=== PATIENT | female | born 1970 | race Asian ===

== ENCOUNTER 2017-09-16 07:39 | Inpatient (IN) | payer MEDICAID, OTHER ==
[~2017-09-16] VITALS: Ht 167.6 cm; Wt 185.4 kg
[~2017-09-16 07:39] MED LIST: AMLO10TA2 PO; ASPI81TA50 PO; CEFD300C37 PO; CHOL2000 PO; CLON0.1T PO; CLON1PAT9 TD; FURO-92 PO; GLIM4TAB2 PO; HYDR-3342 PO; LISI-167 PO; METF10002 PO; POTA10TA11 PO; PRAV20TA2 PO; RIVA1TAB PO; RIVA20TA PO
[2017-09-16] MEDS ORDERED: EMPA25TA PO (08:13)
[2017-09-16] MEDS ORDERED: ASPIRIN 81 MG TABLET CHEW ONE (08:24)
[2017-09-16] MEDS ORDERED: SODIUM CHLORIDE FLUSH 10ML SYR IVF ONE (08:30)
[2017-09-16] MEDS ORDERED: ASPIRIN 81 MG TABLET CHEW PO ONE (08:30)
[2017-09-16 08:35] LABS: BASOPHILS # (AUTO) 0.03 x10^3/uL (0-0.1); BASOPHILS % (AUTO) 1 % (0-1); EOSINOPHILS # (AUTO) 0.16 x10^3/uL (0-0.4); EOSINOPHILS % (AUTO) 2 % (1-7); LYMPHOCYTES # (AUTO) 2.71 x10^3/uL (1-3.4); LYMPHOCYTES % (AUTO) 38 % (22-44); MD NO; MEAN CORPUSCULAR HGB CONC 32.7 g/dL (32.4-35.8); MEAN CORPUSCULAR VOLUME 91.8 fL (80-100); MEAN PLATELET VOLUME 8.8 fL (7.4-10.4); MONOCYTES # (AUTO) 0.73 x10^3/uL (0.2-0.8); MONOCYTES % (AUTO) 10 % (2-9); NEUTROPHILS # (AUTO) 3.55 x10^3/uL (1.8-6.8); NEUTROPHILS % (AUTO) 49 % (42-75); PLATELET COUNT 236 x10^3/uL (130-400); RED CELL DISTRIBUTION WIDTH 15.1 % (9.6-15.2)
[2017-09-16 08:48] LABS: ALBUMIN 3.3 g/dL (3.4-5.0); ANION GAP 6 mmol/L (5-15); CHLORIDE 103 mmol/L (98-107)
[2017-09-16 08:54] LABS: ALANINE AMINOTRANSFERASE 29 U/L (12-78); ALKALINE PHOSPHATASE 53 U/L (45-117); BILIRUBIN,TOTAL 0.5 mg/dL (0.2-1.0); CREATININE 0.87 mg/dL (0.55-1.02); TOTAL PROTEIN 8.1 g/dL (6.4-8.2); TROPONIN I < 0.015 ng/mL (0.000-0.045)
[2017-09-16 08:58] LABS: INTERNATIONAL NORMALIZED RATIO 0.98 (0.93-1.1); PROTHROMBIN TIME 10.2 Seconds (9.6-11.5)
[2017-09-16] MEDS ORDERED: DEXTROSE 4 GM TAB.CHEW PO PRN (10:30)
[2017-09-16] MEDS ORDERED: NITROGLYCERIN 0.4 MG BOTTLE (25 TABS) SL PRN (10:30)
[2017-09-16] MEDS ORDERED: DEXTROSE 50%, 50ML SYRINGE IVPush PRN (10:30)
[2017-09-16] MEDS ORDERED: morphine SULFATE 10 MG/ML, 1ML IVPush PRN (10:30)
[2017-09-16] MEDS ORDERED: DOCUSATE 100 MG CAPSULE PO PRN (10:30)
[2017-09-16] MEDS ORDERED: ONDANSETRON 2MG/ML, 2ML IVPush PRN (10:30)
[2017-09-16] MEDS ORDERED: GLUCAGON 1 MG IM PRN (10:30)
[2017-09-16] MEDS ORDERED: ONDANSETRON ODT 4 MG PO PRN (10:30)
[2017-09-16] MEDS ORDERED: POLYETHYLENE GLYCOL 17 GM PACKET PO PRN (10:30)
[2017-09-16] MEDS ORDERED: ACETAMINOPHEN 325 MG TABLET PO PRN (10:30)
[2017-09-16] MEDS ORDERED: ENALAPRILAT 1.25 MG/ML, 2ML IVPush PRN (10:30)
[2017-09-16] MEDS ORDERED: BISACODYL 10 MG SUPP PR PRN (10:30)
[2017-09-16 10:45] VITALS: BP 117/68
[2017-09-16] MEDS ORDERED: DULA0.75 SQ-INSULIN (11:41)
[2017-09-16] MEDS ORDERED: ADAL10SY SQ-INSULIN (11:41)
[2017-09-16] MEDS ORDERED: MAGNESIUM SULFATE PMX 2GM/50ML 50 ML IV ONE (12:00)
[2017-09-16] MEDS: INSULIN LISPRO 100 UNITS/ML, PEN SQ-INSULIN SCH ×3 (12:57→21:56)
[2017-09-16 14:06] VITALS: BP 119/73
[2017-09-16 14:17] LABS: TROPONIN I < 0.015 ng/mL (0.000-0.045)
[2017-09-16 16:10] VITALS: BP 120/75
[2017-09-16] MEDS: ENOXAPARIN 40 MG/0.4 ML SQ SCH (16:25)
[2017-09-16 20:54] LABS: TROPONIN I < 0.015 ng/mL (0.000-0.045)
[2017-09-16 20:56] VITALS: BP 142/83
[2017-09-16] MEDS: SODIUM CHLORIDE FLUSH 10ML SYR IVF SCH (21:53)
[2017-09-16] MEDS: LISINOPRIL 10 MG TABLET PO SCH (21:54)
[2017-09-16] MEDS: PRAVASTATIN 20 MG TABLET PO SCH (21:55)
[2017-09-17 03:19] VITALS: BP 123/75
[2017-09-17 04:52] LABS: ANION GAP 4 mmol/L (5-15); CALCIUM 9.1 mg/dL (8.5-10.1); CHLORIDE 101 mmol/L (98-107)
[2017-09-17 04:55] LABS: BASOPHILS # (AUTO) 0.04 x10^3/uL (0-0.1); BASOPHILS % (AUTO) 1 % (0-1); EOSINOPHILS # (AUTO) 0.17 x10^3/uL (0-0.4); EOSINOPHILS % (AUTO) 3 % (1-7); LYMPHOCYTES # (AUTO) 2.31 x10^3/uL (1-3.4); LYMPHOCYTES % (AUTO) 36 % (22-44); MD NO; MEAN CORPUSCULAR HEMOGLOBIN 29.9 pg (27.0-34.8); MEAN CORPUSCULAR HGB CONC 32.2 g/dL (32.4-35.8); MEAN CORPUSCULAR VOLUME 92.8 fL (80-100); MEAN PLATELET VOLUME 8.9 fL (7.4-10.4); MONOCYTES # (AUTO) 0.47 x10^3/uL (0.2-0.8); MONOCYTES % (AUTO) 7 % (2-9); NEUTROPHILS # (AUTO) 3.51 x10^3/uL (1.8-6.8); NEUTROPHILS % (AUTO) 54 % (42-75); PLATELET COUNT 236 x10^3/uL (130-400); RED BLOOD COUNT 4.65 x10^6/uL (3.82-5.3); RED CELL DISTRIBUTION WIDTH 15.4 % (9.6-15.2)
[2017-09-17 05:06] LABS: CREATININE 0.74 mg/dL (0.55-1.02)
[2017-09-17] MEDS: ASPIRIN 325 MG TABLET PO SCH (06:16)
[2017-09-17] MEDS: INSULIN LISPRO 100 UNITS/ML, PEN SQ-INSULIN SCH ×4 (07:00→21:35)
[2017-09-17] MEDS ORDERED: REGADENOSON 0.4 MG/5 ML SYRINGE ONE (07:45)
[2017-09-17 07:50] VITALS: BP 122/84
[2017-09-17] MEDS: SODIUM CHLORIDE FLUSH 10ML SYR IVF SCH ×2 (07:55→21:34)
[2017-09-17] MEDS: LISINOPRIL 10 MG TABLET PO SCH ×2 (07:56→21:35)
[2017-09-17] MEDS: AMLODIPINE 5 MG TABLET PO SCH (07:57)
[2017-09-17] MEDS: POTASSIUM CHLORIDE 10 MEQ TABLET.ER PO SCH (09:00)
[2017-09-17] MEDS: FUROSEMIDE 40 MG TABLET PO SCH (09:00)
[2017-09-17] MEDS ORDERED: LISINOPRIL 10 MG TABLET PO SCH (09:00)
[2017-09-17 15:18] VITALS: BP 112/55
[2017-09-17] MEDS: ENOXAPARIN 40 MG/0.4 ML SQ SCH (15:20)
[2017-09-17 21:30] VITALS: BP 130/78
[2017-09-17] MEDS: PRAVASTATIN 20 MG TABLET PO SCH (21:38)
[2017-09-18 01:31] VITALS: BP 135/85
[2017-09-18] MEDS: ASPIRIN 325 MG TABLET PO SCH (05:53)
[2017-09-18] MEDS: INSULIN LISPRO 100 UNITS/ML, PEN SQ-INSULIN SCH ×2 (07:00→12:49)
[2017-09-18 07:20] VITALS: BP 129/82
[2017-09-18] MEDS: POTASSIUM CHLORIDE 10 MEQ TABLET.ER PO SCH (08:37)
[2017-09-18] MEDS: AMLODIPINE 5 MG TABLET PO SCH (08:37)
[2017-09-18] MEDS: FUROSEMIDE 40 MG TABLET PO SCH (08:37)
[2017-09-18] MEDS: LISINOPRIL 10 MG TABLET PO SCH (08:37)
[2017-09-18] MEDS: SODIUM CHLORIDE FLUSH 10ML SYR IVF SCH (08:37)
[2017-09-18 13:32] VITALS: BP 98/64
== END 2017-09-18 17:00 | disposition home or self-care (01) | DRG 313 ==
LOC: ED 09:42 → EDIP 09:48 → 5SO 10:34 → DCLOUNGE 09-18 16:46
PROVIDERS: ADMIT Hospitalist; ATTEND Hospitalist
DX: R07.89 Other chest pain (principal); Z68.44 Body mass index [BMI] 60.0-69.9, adult; I20.0 Unstable angina; E11.65 Type 2 diabetes mellitus with hyperglycemia; E66.01 Morbid (severe) obesity due to excess calories; E78.5 Hyperlipidemia, unspecified; E88.81 Metabolic syndrome and other insulin resistance; G47.33 Obstructive sleep apnea (adult) (pediatric); I11.9 Hypertensive heart disease without heart failure; L40.9 Psoriasis, unspecified; Z79.82 Long term (current) use of aspirin; Z80.8 Family history of malignant neoplasm of other organs or systems; Z83.3 Family history of diabetes mellitus; Z86.711 Personal history of pulmonary embolism; Z86.718 Personal history of other venous thrombosis and embolism; Z87.891 Personal history of nicotine dependence; Z90.710 Acquired absence of both cervix and uterus; Z99.81 Dependence on supplemental oxygen
CPT/HCPCS: 36415; 71045; 78452; 80048; 80053; 82962; 83735; 83880; 84443; 84484; 85025; 85379; 85610; 93005; 93017; 93970; 99285; C8929; J1650; J2785; A9502; C9898; J1815; J3475

== ENCOUNTER 2018-03-12 11:17 | Emergency (ER) | payer OTHER ==
[~2018-03-12] VITALS: Ht 167.6 cm; Wt 185.0 kg
[~2018-03-12 11:17] MED LIST changes: +ADAL10SY SQ-INSULIN; -AMLO10TA2 PO; +AMLO10TA6 PO; -CLON0.1T PO; +CLON0.1T22 PO; +DULA0.75 SQ-INSULIN; +EMPA25TA PO
[2018-03-12 11:36] VITALS: BP 166/100
--- NOTE | 2018-03-12 11:46 | NUR ---
PT STATES SHE USES HOME O2 OCCASIONALLY AND CPAP AT NIGHT. PT PLACED ON 2LPM O2 AND SENT TO [facility]. SPO2 AT 94% ON O2.
== END 2018-03-12 13:59 | disposition home or self-care (01) ==
LOC: ED 12:52
DX: M25.561 Pain in right knee (principal); G89.29 Other chronic pain; E11.9 Type 2 diabetes mellitus without complications; I10 Essential (primary) hypertension; E78.5 Hyperlipidemia, unspecified; Z86.711 Personal history of pulmonary embolism; Z86.718 Personal history of other venous thrombosis and embolism
CPT/HCPCS: 99283

== ENCOUNTER 2019-05-26 17:29 | Emergency (ER) | payer OTHER ==
[~2019-05-26] VITALS: Ht 167.6 cm; Wt 168.0 kg
[~2019-05-26 17:29] MED LIST changes: -AMLO10TA6 PO; +AMLO10TA8 PO; -GLIM4TAB2 PO; +GLIM4TAB8 PO
[2019-05-26] MEDS ORDERED: AMLODIPINE (17:48)
--- NOTE | 2019-05-26 17:50 | NUR ---
PT CAME IN CO OF "CHEST TIGHTNESS, AND A COUGH. I FEEL REALLY DRY. DIZZY." PT DENIES FEVERS, CHILLS, BODY ACHES. EKG COMPELTED. PT HOOKED UP TO VISUAL MERCHANDISING ASSOCIATE. HX: CHF, DMII, HDL, HTN, PSORIASIS WAS JUST RECENTLY TOLD SHE HAS HEP B BY HER DERMATOLIGST
[2019-05-26] MEDS ORDERED: MAALOX/HYOSCYAMINE/LIDOCAINE 45 ML BTL ONE (18:23)
[2019-05-26] MEDS ORDERED: MAALOX/HYOSCYAMINE/LIDOCAINE 45 ML BTL PO ONE (18:30)
[2019-05-26 18:47] LABS: BASOPHILS % (AUTO) 0 % (0-1); EOSINOPHILS # (AUTO) 0.12 x10^3/uL (0-0.4); EOSINOPHILS % (AUTO) 1 % (1-7); LYMPHOCYTES # (AUTO) 1.66 x10^3/uL (1-3.4); LYMPHOCYTES % (AUTO) 20 % (22-44); MD NO; MEAN CORPUSCULAR HEMOGLOBIN 30.4 pg (27.0-34.8); MEAN CORPUSCULAR HGB CONC 32.6 g/dL (32.4-35.8); MEAN CORPUSCULAR VOLUME 93.3 fL (80-100); MEAN PLATELET VOLUME 8.9 fL (7.4-10.4); MONOCYTES # (AUTO) 0.26 x10^3/uL (0.2-0.8); MONOCYTES % (AUTO) 3 % (2-9); NEUTROPHILS # (AUTO) 6.16 x10^3/uL (1.8-6.8); NEUTROPHILS % (AUTO) 75 % (42-75); PLATELET COUNT 246 x10^3/uL (130-400); RED BLOOD COUNT 4.37 x10^6/uL (3.82-5.3); RED CELL DISTRIBUTION WIDTH 13.8 % (9.6-15.2)
[2019-05-26 18:56] LABS: ALANINE AMINOTRANSFERASE 23 U/L (12-78); ALBUMIN 3.1 g/dL (3.4-5.0); ANION GAP 9 mmol/L (5-15); CALCIUM 9.1 mg/dL (8.5-10.1); CHLORIDE 99 mmol/L (98-107)
[2019-05-26 19:00] LABS: ALKALINE PHOSPHATASE 72 U/L (45-117); BILIRUBIN,TOTAL 0.6 mg/dL (0.2-1.0); CREATININE 0.79 mg/dL (0.55-1.02); TOTAL PROTEIN 8.1 g/dL (6.4-8.2); TROPONIN I < 0.015 ng/mL (0.000-0.045)
[2019-05-26 19:18] VITALS: BP 130/77
--- NOTE | 2019-05-26 19:19 | NUR ---
PT RESTING IN [facility]. REPORTS I[facility]P Addendum: 05/26/19 at 1919 by JONNATHAN REPORTS IMPROVEMENT FROM PAIN IN HER CHEST
[2019-05-26] MEDS ORDERED: FUROSEMIDE 40 MG/4 ML IV ONE (20:00)
[2019-05-26] MEDS ORDERED: FUROSEMIDE 40 MG/4 ML ONE (20:07)
--- NOTE | 2019-05-26 20:21 | NUR ---
PT RESTING IN [facility]. MEDICATED PER MAY. PLACED ON 2 LITERS VIA O2. PT SAYS SHE SLEEPS WITH 2 LITERS
== END 2019-05-28 23:21 | disposition home or self-care (01) ==
LOC: ED 19:33 → UNDOADMIN 20:20 → EDIP 20:20 → ED 05-28 23:21
DX: R06.00 Dyspnea, unspecified (principal); I11.0 Hypertensive heart disease with heart failure; I50.9 Heart failure, unspecified; E78.5 Hyperlipidemia, unspecified; Z90.710 Acquired absence of both cervix and uterus
CPT/HCPCS: 36415; 71045; 80053; 83880; 84484; 85025; 93005; 96374; 99285; J1940

== ENCOUNTER 2019-09-03 14:03 | Emergency (ER) | payer OTHER ==
[~2019-09-03] VITALS: Ht 167.6 cm; Wt 153.1 kg
[~2019-09-03 14:03] MED LIST changes: +AMLODIPINE
--- NOTE | 2019-09-03 15:39 | NUR ---
COMPUTER SCIENCES PROFESSOR: PT WALKED BACK FROM LOBBY TO ROOM AT THIS TIME.
[2019-09-03] MEDS ORDERED: OXYcodone/APAP 10/325MG TABLET ONE (16:11)
[2019-09-03 16:14] VITALS: BP 124/76
[2019-09-03] MEDS ORDERED: OXYcodone/APAP 10/325MG TABLET PO ONE (16:30)
--- NOTE | 2019-09-03 18:01 | NUR ---
Patient/Caregiver given discharge instructions and they have confirmed that they understand the instructions. Patient IN WHEELCHAIR AT REQUEST
== END 2019-09-03 18:02 | disposition home or self-care (01) ==
LOC: ED 17:30
DX: M19.071 Primary osteoarthritis, right ankle and foot (principal); M25.571 Pain in right ankle and joints of right foot
CPT/HCPCS: 99284

== ENCOUNTER 2019-09-14 16:03 | Inpatient (IN) | payer OTHER ==
[~2019-09-14] VITALS: Ht 167.6 cm; Wt 148.8 kg
[2019-09-14 16:59] LABS: BASOPHILS # (AUTO) 0.02 x10^3/uL (0-0.1); BASOPHILS % (AUTO) 0 % (0-1); EOSINOPHILS % (AUTO) 0 % (1-7); LYMPHOCYTES # (AUTO) 1.42 x10^3/uL (1-3.4); LYMPHOCYTES % (AUTO) 21 % (22-44); MD NO; MEAN CORPUSCULAR HEMOGLOBIN 30.3 pg (27.0-34.8); MEAN CORPUSCULAR HGB CONC 32.3 g/dL (32.4-35.8); MEAN CORPUSCULAR VOLUME 93.8 fL (80-100); MEAN PLATELET VOLUME 9.3 fL (7.4-10.4); MONOCYTES # (AUTO) 0.54 x10^3/uL (0.2-0.8); MONOCYTES % (AUTO) 8 % (2-9); NEUTROPHILS # (AUTO) 4.77 x10^3/uL (1.8-6.8); NEUTROPHILS % (AUTO) 71 % (42-75); PLATELET COUNT 211 x10^3/uL (130-400); RED BLOOD COUNT 4.49 x10^6/uL (3.82-5.3)
[2019-09-14] MEDS ORDERED: ACETAMINOPHEN 500 MG TABLET PO ONE (17:00)
[2019-09-14] MEDS ORDERED: SODIUM CHLORIDE 0.9% 1,000ML IVBOLUS ONE (17:00)
[2019-09-14 17:06] LABS: ALANINE AMINOTRANSFERASE 40 U/L (12-78); ANION GAP 9 mmol/L (5-15); CALCIUM 8.6 mg/dL (8.5-10.1); CHLORIDE 101 mmol/L (98-107); CREATININE 1.04 mg/dL (0.55-1.02)
[2019-09-14 17:08] LABS: ALKALINE PHOSPHATASE 69 U/L (45-117); BILIRUBIN,TOTAL 0.5 mg/dL (0.2-1.0); TOTAL PROTEIN 8.2 g/dL (6.4-8.2)
[2019-09-14] MEDS ORDERED: OMEP40CA42 PO (17:08)
[2019-09-14] MEDS ORDERED: ATOR20TA37 PO (17:08)
[2019-09-14] MEDS ORDERED: APIX5TAB PO (17:08)
[2019-09-14] MEDS ORDERED: AMLO10TA8 PO (17:08)
[2019-09-14] MEDS ORDERED: ALLO100T30 PO (17:08)
[2019-09-14] MEDS ORDERED: ACETAMINOPHEN 500 MG TABLET ONE (17:11)
[2019-09-14 17:17] LABS: C-REACTIVE PROTEIN, QUANT 8.6 mg/dL (0.02-0.49)
--- NOTE | 2019-09-14 17:21 | NUR ---
PATIENT CAME TO THE ER WITH HER SISTER FOR FEVERS, CHILLS, HEADACHES, COUGH X3 DAYS. PATIENT'S DAUGHTER AND SON HAVE BEEN DX WITH COVID AND HAVE BEEN IN CLOSE CONTACT. PT IS NOW HAVEING SOB(ON 2L NC) NOW REQUIRING 4L NC. PATIENT IN BED WITH GOWN WITH CONT SEGMENT ASSEMBLER, SPO2, BP 30 MIN, SIDE RAILS UP X2, CALL LIGHT IN REACH.WENT OVER PLAN OF CARE FROM ORDER LIST, AGREES TO PLAN.
[2019-09-14] MEDS ORDERED: SODIUM CHLORIDE FLUSH 10ML SYR IVF PRN (17:30)
[2019-09-14] MEDS ORDERED: AZITHROMYCIN 500 MG in SODIUM CHLORIDE 0.9% 250 ML IVPB ONE (17:30)
[2019-09-14] MEDS ORDERED: CEFTRIAXONE PMX 1GM/50ML 50 ML IVPB ONE (17:30)
[2019-09-14] MEDS ORDERED: CEFTRIAXONE PMX 1GM/50ML 50 ML ONE (17:36)
[2019-09-14 17:59] LABS: D-DIMER (DIC) 0.3 ug/mlFEU (0.00-0.52); PROTIME 10.6 Seconds (9.6-11.5)
[2019-09-14] MEDS ORDERED: ONDANSETRON 2MG/ML, 2ML ONE (18:08)
[2019-09-14] MEDS ORDERED: BISACODYL 10 MG SUPP PR PRN (18:30)
[2019-09-14] MEDS ORDERED: CEFTRIAXONE PMX 1GM/50ML 50 ML IV SCH (18:30)
[2019-09-14] MEDS ORDERED: ONDANSETRON 2MG/ML, 2ML IVPush ONE (18:30)
[2019-09-14] MEDS ORDERED: POLYETHYLENE GLYCOL 17 GM PACKET PO PRN (18:30)
--- NOTE | 2019-09-14 18:43 | NUR ---
ED DIET TRAY ORDERED
[2019-09-14] MEDS: AZITHROMYCIN 500 MG in SODIUM CHLORIDE 0.9% 250 ML IV SCH (18:58)
[2019-09-14] MEDS: SODIUM CHLORIDE 0.9% 1,000 ML IV SCH (19:08)
--- NOTE | 2019-09-14 20:19 | NUR ---
LATE ENTRY FOR 1910: RECEIVED BEDSIDE REPORT FROM LINDA TINAJERO. PT ABLE TO GET SELF OUT OF BED AND SIT IN CHAIR WHILE ER [facility] WAS REPLACED WITH A HOSPITAL BED. PT THEN ABLE TO GET SELF BACK IN BED. PT SITTING IN BED CONNECTED TO CARDIAC, BP AND O2 MONITORS. BEDRAILS UP X3, CALL LIGHT WITHIN REACH.
[2019-09-14] MEDS ORDERED: APIXABAN 5 MG TABLET ONE (20:26)
[2019-09-14] MEDS ORDERED: metFORMIN 500 MG TABLET ONE (20:26)
[2019-09-14] MEDS: ASCORBIC ACID 500 MG TABLET PO SCH (20:30)
[2019-09-14] MEDS: ZINC SULFATE 220 MG CAPSULE PO SCH (20:31)
[2019-09-14] MEDS: ATORVASTATIN 20 MG TABLET PO SCH (20:31)
[2019-09-14] MEDS: APIXABAN 5 MG TABLET PO SCH (20:31)
--- NOTE | 2019-09-14 20:33 | NUR ---
PT PROVIDED WITH DINNER, CONFIRMED WIT MD AMEZCUA NO INSULIN SLIDING SCALE NEEDS TO BE ORDERED FOR MEALS. PT EASILY AROUSED WITH VERBAL STIMULI FROM SLEEP, EATING WITHOUT DIFFICULTY.
[2019-09-14] MEDS: LISINOPRIL 20 MG TABLET PO SCH (21:00)
[2019-09-14] MEDS: metFORMIN 500 MG TABLET PO SCH (21:00)
[2019-09-14] MEDS ORDERED: TEMPLATE NON-FORMULARY MED. (Metformin Hcl** 1,000 MG) PO SCH (21:00)
--- NOTE | 2019-09-14 21:54 | NUR ---
PT UP TO BEDSIDE COMMODE WITH STAND BY ASSIST, STEADY ON FEET.
--- NOTE | 2019-09-14 22:17 | NUR ---
REPORT GIVEN TO BINH JULIEN RN.
[2019-09-14] MEDS ORDERED: LISINOPRIL 10 MG TABLET ONE (23:15)
[2019-09-14 23:23] VITALS: BP 119/74
[2019-09-15] MEDS: SODIUM CHLORIDE 0.9% 1,000 ML IV SCH (02:52)
[2019-09-15 06:35] LABS: BASOPHILS # (AUTO) 0.02 x10^3/uL (0-0.1); BASOPHILS % (AUTO) 1 % (0-1); EOSINOPHILS # (AUTO) 0.01 x10^3/uL (0-0.4); EOSINOPHILS % (AUTO) 0 % (1-7); LYMPHOCYTES # (AUTO) 1.06 x10^3/uL (1-3.4); LYMPHOCYTES % (AUTO) 22 % (22-44); MD NO; MEAN CORPUSCULAR HEMOGLOBIN 30.1 pg (27.0-34.8); MEAN CORPUSCULAR HGB CONC 31.8 g/dL (32.4-35.8); MEAN CORPUSCULAR VOLUME 94.6 fL (80-100); MEAN PLATELET VOLUME 8.6 fL (7.4-10.4); MONOCYTES # (AUTO) 0.43 x10^3/uL (0.2-0.8); MONOCYTES % (AUTO) 9 % (2-9); NEUTROPHILS # (AUTO) 3.21 x10^3/uL (1.8-6.8); NEUTROPHILS % (AUTO) 68 % (42-75); PLATELET COUNT 176 x10^3/uL (130-400); RED BLOOD COUNT 3.97 x10^6/uL (3.82-5.3); RED CELL DISTRIBUTION WIDTH 15.5 % (9.6-15.2)
[2019-09-15 06:41] VITALS: BP_SYST 108; BP_SYST 97; BP_DIAS 67; BP_DIAS 75
[2019-09-15 06:44] LABS: ANION GAP 5 mmol/L (5-15); CALCIUM 8.2 mg/dL (8.5-10.1); CHLORIDE 107 mmol/L (98-107); CREATININE 1.11 mg/dL (0.55-1.02)
[2019-09-15] MEDS: SENNA/DOCUSATE TABLET PO SCH (09:00)
[2019-09-15] MEDS ORDERED: LISINOPRIL 10 MG TABLET ONE (09:38)
[2019-09-15] MEDS: metFORMIN 500 MG TABLET PO SCH ×2 (10:20→16:05)
[2019-09-15] MEDS: LISINOPRIL 20 MG TABLET PO SCH ×2 (10:20→21:29)
[2019-09-15] MEDS: ASCORBIC ACID 500 MG TABLET PO SCH (10:20)
[2019-09-15] MEDS: ZINC SULFATE 220 MG CAPSULE PO SCH (10:20)
[2019-09-15] MEDS: ALLOPURINOL 100 MG TABLET PO SCH (10:21)
[2019-09-15] MEDS: APIXABAN 5 MG TABLET PO SCH ×2 (10:21→21:29)
[2019-09-15] MEDS: OMEPRAZOLE 20 MG CAPSULE.DR PO SCH (10:22)
[2019-09-15] MEDS: AMLODIPINE 10 MG TAB PO SCH (10:22)
[2019-09-15 12:19] VITALS: BP 103/67
[2019-09-15] MEDS: ATORVASTATIN 20 MG TABLET PO SCH ×2 (13:13→21:29)
[2019-09-15] MEDS: ACETAMINOPHEN 325 MG TABLET PO PRN ×2 (13:21→18:14)
[2019-09-15] MEDS: GUAIFENESIN/DM 200-20MG, 10ML UDC PO PRN ×2 (13:22→21:41)
[2019-09-15] MEDS ORDERED: VANCOMYCIN PER PHARMACY MC PRN (14:00)
[2019-09-15] MEDS ORDERED: PHARMACOKINETIC CONSULTATION MC ONE (14:30)
[2019-09-15] MEDS ORDERED: PHARMACOKINETIC MONITORING MC PRN (14:30)
[2019-09-15] MEDS: VANCOMYCIN 2,800 MG in SODIUM CHLORIDE 0.9% 500 ML IV SCH (14:43)
[2019-09-15 20:49] VITALS: BP 118/85
[2019-09-15] MEDS: AZITHROMYCIN 500 MG in SODIUM CHLORIDE 0.9% 250 ML IV SCH (21:29)
[2019-09-15] MEDS ORDERED: AZITHROMYCIN 500 MG TABLET PO ONE (22:00)
[2019-09-15] MEDS: ONDANSETRON ODT 4 MG PO PRN (23:55)
[2019-09-16] VITALS: BP 109/69
[2019-09-16 05:28] LABS: CREATININE 1.01 mg/dL (0.55-1.02)
[2019-09-16] MEDS: GUAIFENESIN/DM 200-20MG, 10ML UDC PO PRN ×3 (05:46→21:35)
[2019-09-16] MEDS: SENNA/DOCUSATE TABLET PO SCH (09:00)
[2019-09-16] MEDS: ATORVASTATIN 20 MG TABLET PO SCH ×2 (09:00→21:37)
[2019-09-16] MEDS: ALLOPURINOL 100 MG TABLET PO SCH (09:01)
[2019-09-16] MEDS: OMEPRAZOLE 20 MG CAPSULE.DR PO SCH (09:01)
[2019-09-16] MEDS: LISINOPRIL 20 MG TABLET PO SCH ×2 (09:01→21:35)
[2019-09-16] MEDS: ASCORBIC ACID 500 MG TABLET PO SCH ×3 (09:01→21:35)
[2019-09-16] MEDS: ZINC SULFATE 220 MG CAPSULE PO SCH (09:01)
[2019-09-16] MEDS: AMLODIPINE 10 MG TAB PO SCH (09:02)
[2019-09-16] MEDS: APIXABAN 5 MG TABLET PO SCH ×2 (09:02→21:35)
[2019-09-16] MEDS: metFORMIN 500 MG TABLET PO SCH ×2 (09:02→18:13)
[2019-09-16] MEDS: ACETAMINOPHEN 325 MG TABLET PO PRN ×2 (09:02→15:46)
[2019-09-16 09:08] VITALS: BP 111/74
[2019-09-16 09:12] LABS: BASOPHILS # (AUTO) 0.02 x10^3/uL (0-0.1); BASOPHILS % (AUTO) 0 % (0-1); EOSINOPHILS % (AUTO) 0 % (1-7); LYMPHOCYTES # (AUTO) 1.12 x10^3/uL (1-3.4); LYMPHOCYTES % (AUTO) 18 % (22-44); MD NO; MEAN CORPUSCULAR HEMOGLOBIN 30.1 pg (27.0-34.8); MEAN CORPUSCULAR HGB CONC 32.1 g/dL (32.4-35.8); MEAN CORPUSCULAR VOLUME 93.7 fL (80-100); MEAN PLATELET VOLUME 8.4 fL (7.4-10.4); MONOCYTES # (AUTO) 0.43 x10^3/uL (0.2-0.8); MONOCYTES % (AUTO) 7 % (2-9); NEUTROPHILS # (AUTO) 4.54 x10^3/uL (1.8-6.8); NEUTROPHILS % (AUTO) 74 % (42-75); PLATELET COUNT 183 x10^3/uL (130-400); RED BLOOD COUNT 4.07 x10^6/uL (3.82-5.3); RED CELL DISTRIBUTION WIDTH 15.3 % (9.6-15.2)
[2019-09-16 09:21] LABS: ANION GAP 5 mmol/L (5-15); CALCIUM 8.5 mg/dL (8.5-10.1); CHLORIDE 107 mmol/L (98-107); CREATININE 1.06 mg/dL (0.55-1.02)
[2019-09-16] MEDS: OXYcodone IR 5MG TABLET PO PRN ×3 (09:44→23:17)
[2019-09-16] MEDS: VANCOMYCIN 2,800 MG in SODIUM CHLORIDE 0.9% 500 ML IV SCH (11:13)
[2019-09-16 15:43] VITALS: BP 106/74
[2019-09-16] MEDS: PIPERACILLIN/TAZO/PMX 3.375GM 50 ML IV SCH (18:13)
[2019-09-16] MEDS: methylPREDNISolone SOD SUCC 40 MG/ML IV SCH (18:14)
[2019-09-16 20:31] LABS: MICROSCOPIC INDICATED
[2019-09-16] MEDS ORDERED: VANCOMYCIN 2,300 MG in SODIUM CHLORIDE 0.9% 500 ML IV SCH (21:00)
[2019-09-16] MEDS: AZITHROMYCIN 500 MG in SODIUM CHLORIDE 0.9% 250 ML IV SCH (21:35)
[2019-09-16 21:41] VITALS: BP 128/85
[2019-09-17] VITALS (8 sets, daily range): BP systolic 88–117; BP diastolic 58–75
[2019-09-17] MEDS: PIPERACILLIN/TAZO/PMX 3.375GM 50 ML IV SCH ×4 (00:51→20:04)
[2019-09-17] MEDS: methylPREDNISolone SOD SUCC 40 MG/ML IV SCH ×2 (05:56→18:24)
[2019-09-17] MEDS: OMEPRAZOLE 20 MG CAPSULE.DR PO SCH (08:26)
[2019-09-17] MEDS: ASCORBIC ACID 500 MG TABLET PO SCH ×3 (08:26→20:05)
[2019-09-17] MEDS: metFORMIN 500 MG TABLET PO SCH ×2 (08:27→17:14)
[2019-09-17] MEDS: ALLOPURINOL 100 MG TABLET PO SCH (08:27)
[2019-09-17] MEDS: AMLODIPINE 10 MG TAB PO SCH (08:27)
[2019-09-17] MEDS: APIXABAN 5 MG TABLET PO SCH ×2 (08:27→20:04)
[2019-09-17] MEDS: LISINOPRIL 20 MG TABLET PO SCH ×2 (08:27→20:05)
[2019-09-17] MEDS: ATORVASTATIN 20 MG TABLET PO SCH ×2 (08:27→20:05)
[2019-09-17] MEDS: ZINC SULFATE 220 MG CAPSULE PO SCH (08:27)
[2019-09-17] MEDS: SENNA/DOCUSATE TABLET PO SCH (08:29)
[2019-09-17] MEDS: GUAIFENESIN/DM 200-20MG, 10ML UDC PO PRN (10:00)
[2019-09-17 11:10] LABS: MEAN CORPUSCULAR HEMOGLOBIN 29.4 pg (27.0-34.8); MEAN CORPUSCULAR HGB CONC 31.2 g/dL (32.4-35.8); MEAN CORPUSCULAR VOLUME 94.4 fL (80-100); MEAN PLATELET VOLUME 8.4 fL (7.4-10.4); PLATELET COUNT 191 x10^3/uL (130-400); RED BLOOD COUNT 3.97 x10^6/uL (3.82-5.3); RED CELL DISTRIBUTION WIDTH 15.6 % (9.6-15.2)
[2019-09-17 11:20] LABS: ALANINE AMINOTRANSFERASE 40 U/L (12-78); ALBUMIN 2.7 g/dL (3.4-5.0); ANION GAP 4 mmol/L (5-15); CALCIUM 8.3 mg/dL (8.5-10.1); CHLORIDE 107 mmol/L (98-107); CREATININE 1.26 mg/dL (0.55-1.02)
[2019-09-17 11:27] LABS: ALKALINE PHOSPHATASE 74 U/L (45-117); BILIRUBIN,TOTAL 0.4 mg/dL (0.2-1.0); TOTAL PROTEIN 7.5 g/dL (6.4-8.2)
[2019-09-17 11:51] LABS: MD SCAN
[2019-09-17 11:52] LABS: BASOPHILS % (AUTO) 0 % (0-1); EOSINOPHILS % (AUTO) 0 % (1-7); LYMPHOCYTES # (AUTO) 0.38 x10^3/uL (1-3.4); LYMPHOCYTES % (AUTO) 6 % (22-44); MONOCYTES # (AUTO) 0.27 x10^3/uL (0.2-0.8); MONOCYTES % (AUTO) 4 % (2-9); NEUTROPHILS # (AUTO) 5.55 x10^3/uL (1.8-6.8); NEUTROPHILS % (AUTO) 90 % (42-75)
[2019-09-17] MEDS: ACETAMINOPHEN 325 MG TABLET PO PRN (11:57)
[2019-09-17] MEDS ORDERED: REMDESIVIR 200 MG in SODIUM CHLORIDE 0.9% 250 ML IVPB ONE (15:30)
[2019-09-17] MEDS: AZITHROMYCIN 500 MG in SODIUM CHLORIDE 0.9% 250 ML IV SCH (20:51)
[2019-09-18 00:26] VITALS: BP 121/70
[2019-09-18] MEDS: PIPERACILLIN/TAZO/PMX 3.375GM 50 ML IV SCH ×3 (03:33→20:35)
[2019-09-18] MEDS: OXYcodone IR 5MG TABLET PO PRN ×2 (03:33→21:50)
[2019-09-18] MEDS: methylPREDNISolone SOD SUCC 40 MG/ML IV SCH ×2 (05:35→17:16)
[2019-09-18 06:32] LABS: INTERNATIONAL NORMALIZED RATIO 0.98 (0.93-1.1); PROTHROMBIN TIME 10.4 Seconds (9.6-11.5)
[2019-09-18 06:34] LABS: ALANINE AMINOTRANSFERASE 40 U/L (12-78); ALBUMIN 2.4 g/dL (3.4-5.0); ANION GAP 4 mmol/L (5-15); CALCIUM 8.2 mg/dL (8.5-10.1); CHLORIDE 109 mmol/L (98-107); CREATININE 1.24 mg/dL (0.55-1.02)
[2019-09-18 06:37] LABS: ALKALINE PHOSPHATASE 67 U/L (45-117); BILIRUBIN,TOTAL 0.4 mg/dL (0.2-1.0); TOTAL PROTEIN 7.3 g/dL (6.4-8.2)
[2019-09-18 07:16] VITALS: BP 112/78
[2019-09-18] MEDS: ZINC SULFATE 220 MG CAPSULE PO SCH (08:06)
[2019-09-18] MEDS: metFORMIN 500 MG TABLET PO SCH ×2 (08:06→15:36)
[2019-09-18] MEDS: ALLOPURINOL 100 MG TABLET PO SCH (08:07)
[2019-09-18] MEDS: APIXABAN 5 MG TABLET PO SCH ×2 (08:07→21:49)
[2019-09-18] MEDS: LISINOPRIL 20 MG TABLET PO SCH (08:07)
[2019-09-18] MEDS: ASCORBIC ACID 500 MG TABLET PO SCH ×3 (08:07→21:49)
[2019-09-18] MEDS: CHOLECALCIFEROL 5,000u TAB PO SCH (08:07)
[2019-09-18] MEDS: ATORVASTATIN 20 MG TABLET PO SCH ×2 (08:10→21:49)
[2019-09-18] MEDS: SENNA/DOCUSATE TABLET PO SCH (08:11)
[2019-09-18] MEDS: AMLODIPINE 10 MG TAB PO SCH (09:00)
[2019-09-18] MEDS: OMEPRAZOLE 20 MG CAPSULE.DR PO SCH (09:00)
[2019-09-18 13:50] VITALS: BP 100/68
[2019-09-18] MEDS: GUAIFENESIN/DM 200-20MG, 10ML UDC PO PRN (14:03)
[2019-09-18] MEDS: ONDANSETRON ODT 4 MG PO PRN (15:33)
[2019-09-18] MEDS: REMDESIVIR 100 MG in SODIUM CHLORIDE 0.9% 250 ML IVPB SCH (15:34)
[2019-09-18 15:45] VITALS: BP 107/72
[2019-09-18] MEDS: FUROSEMIDE 20 MG/2 ML IV SCH (16:44)
[2019-09-18 16:49] VITALS: BP 121/74
[2019-09-18 18:44] VITALS: BP 116/76
[2019-09-18] MEDS: AZITHROMYCIN 500 MG in SODIUM CHLORIDE 0.9% 250 ML IV SCH (21:49)
[2019-09-19 00:17] VITALS: BP 113/66
[2019-09-19] MEDS: PIPERACILLIN/TAZO/PMX 3.375GM 50 ML IV SCH ×3 (04:20→20:39)
[2019-09-19] MEDS: methylPREDNISolone SOD SUCC 40 MG/ML IV SCH ×2 (05:51→17:32)
[2019-09-19 06:26] LABS: CHLORIDE 107 mmol/L (98-107)
[2019-09-19 06:35] LABS: ALANINE AMINOTRANSFERASE 39 U/L (12-78); ALBUMIN 2.6 g/dL (3.4-5.0); ALKALINE PHOSPHATASE 66 U/L (45-117); ANION GAP 9 mmol/L (5-15); BILIRUBIN,TOTAL 0.5 mg/dL (0.2-1.0); CALCIUM 8.5 mg/dL (8.5-10.1); CREATININE 1.11 mg/dL (0.55-1.02); TOTAL PROTEIN 7.7 g/dL (6.4-8.2)
[2019-09-19 08:16] VITALS: BP 127/78
[2019-09-19] MEDS: ATORVASTATIN 20 MG TABLET PO SCH ×2 (08:41→20:39)
[2019-09-19] MEDS: metFORMIN 500 MG TABLET PO SCH ×2 (08:41→16:53)
[2019-09-19] MEDS: ALLOPURINOL 100 MG TABLET PO SCH (08:41)
[2019-09-19] MEDS: APIXABAN 5 MG TABLET PO SCH ×2 (08:41→20:39)
[2019-09-19] MEDS: ZINC SULFATE 220 MG CAPSULE PO SCH (08:41)
[2019-09-19] MEDS: OMEPRAZOLE 20 MG CAPSULE.DR PO SCH (08:41)
[2019-09-19] MEDS: ASCORBIC ACID 500 MG TABLET PO SCH ×3 (08:41→20:39)
[2019-09-19] MEDS: SENNA/DOCUSATE TABLET PO SCH ×2 (08:41→08:44)
[2019-09-19] MEDS: FUROSEMIDE 20 MG/2 ML IV SCH ×2 (08:42→16:52)
[2019-09-19] MEDS: CHOLECALCIFEROL 5,000u TAB PO SCH (08:42)
[2019-09-19 12:06] VITALS: BP 111/52
[2019-09-19] MEDS: REMDESIVIR 100 MG in SODIUM CHLORIDE 0.9% 250 ML IVPB SCH (16:52)
[2019-09-19 19:50] VITALS: BP 118/75
[2019-09-19] MEDS: ACETAMINOPHEN 325 MG TABLET PO PRN (20:40)
[2019-09-19] MEDS: OXYcodone IR 5MG TABLET PO PRN (22:38)
[2019-09-20 02:00] VITALS: BP 115/76
[2019-09-20] MEDS: PIPERACILLIN/TAZO/PMX 3.375GM 50 ML IV SCH ×3 (03:17→20:18)
[2019-09-20] MEDS: methylPREDNISolone SOD SUCC 40 MG/ML IV SCH ×2 (05:22→17:01)
[2019-09-20 06:05] LABS: BASOPHILS # (AUTO) 0.01 x10^3/uL (0-0.1); BASOPHILS % (AUTO) 0 % (0-1); EOSINOPHILS # (AUTO) 0.05 x10^3/uL (0-0.4); EOSINOPHILS % (AUTO) 1 % (1-7); LYMPHOCYTES # (AUTO) 0.72 x10^3/uL (1-3.4); LYMPHOCYTES % (AUTO) 8 % (22-44); MD NO; MEAN CORPUSCULAR HEMOGLOBIN 30.4 pg (27.0-34.8); MEAN CORPUSCULAR HGB CONC 32.4 g/dL (32.4-35.8); MEAN CORPUSCULAR VOLUME 93.9 fL (80-100); MEAN PLATELET VOLUME 8.4 fL (7.4-10.4); MONOCYTES # (AUTO) 0.63 x10^3/uL (0.2-0.8); MONOCYTES % (AUTO) 7 % (2-9); NEUTROPHILS % (AUTO) 85 % (42-75); PLATELET COUNT 270 x10^3/uL (130-400); RED BLOOD COUNT 4.26 x10^6/uL (3.82-5.3); RED CELL DISTRIBUTION WIDTH 15.3 % (9.6-15.2)
[2019-09-20 06:25] LABS: C-REACTIVE PROTEIN, QUANT 1.9 mg/dL (0.02-0.49)
[2019-09-20 07:30] LABS: ALANINE AMINOTRANSFERASE 36 U/L (12-78); ALBUMIN 2.8 g/dL (3.4-5.0); ANION GAP 8 mmol/L (5-15); CALCIUM 9.1 mg/dL (8.5-10.1); CHLORIDE 104 mmol/L (98-107)
[2019-09-20 07:32] LABS: ALKALINE PHOSPHATASE 64 U/L (45-117); BILIRUBIN,TOTAL 0.4 mg/dL (0.2-1.0); TOTAL PROTEIN 7.6 g/dL (6.4-8.2)
[2019-09-20 08:07] VITALS: BP 121/84
[2019-09-20] MEDS: FUROSEMIDE 20 MG/2 ML IV SCH (08:34)
[2019-09-20] MEDS: ASCORBIC ACID 500 MG TABLET PO SCH ×3 (08:36→20:19)
[2019-09-20] MEDS: ZINC SULFATE 220 MG CAPSULE PO SCH (08:36)
[2019-09-20] MEDS: APIXABAN 5 MG TABLET PO SCH ×2 (08:36→20:19)
[2019-09-20] MEDS: CHOLECALCIFEROL 5,000u TAB PO SCH (08:36)
[2019-09-20] MEDS: metFORMIN 500 MG TABLET PO SCH ×2 (08:36→17:01)
[2019-09-20] MEDS: SENNA/DOCUSATE TABLET PO SCH (08:37)
[2019-09-20] MEDS: ATORVASTATIN 20 MG TABLET PO SCH ×2 (08:37→20:19)
[2019-09-20] MEDS: OMEPRAZOLE 20 MG CAPSULE.DR PO SCH (08:37)
[2019-09-20] MEDS: ALLOPURINOL 100 MG TABLET PO SCH (08:37)
[2019-09-20] MEDS: INSULIN LISPRO 100 UNITS/ML, PEN SQ-INSULIN SCH ×3 (12:00→20:19)
[2019-09-20 12:16] VITALS: BP 145/85
[2019-09-20] MEDS: ONDANSETRON ODT 4 MG PO PRN (16:00)
[2019-09-20] MEDS: REMDESIVIR 100 MG in SODIUM CHLORIDE 0.9% 250 ML IVPB SCH (16:00)
[2019-09-20] MEDS: ACETAMINOPHEN 325 MG TABLET PO PRN (17:01)
[2019-09-20 18:34] VITALS: BP 118/80
[2019-09-21 00:15] VITALS: BP 119/67
[2019-09-21] MEDS: PIPERACILLIN/TAZO/PMX 3.375GM 50 ML IV SCH (03:15)
[2019-09-21] MEDS: OXYcodone IR 5MG TABLET PO PRN (03:15)
[2019-09-21] MEDS: methylPREDNISolone SOD SUCC 40 MG/ML IV SCH (05:18)
[2019-09-21 06:24] LABS: BASOPHILS % (AUTO) 0 % (0-1); EOSINOPHILS # (AUTO) 0.06 x10^3/uL (0-0.4); EOSINOPHILS % (AUTO) 1 % (1-7); LYMPHOCYTES # (AUTO) 0.65 x10^3/uL (1-3.4); LYMPHOCYTES % (AUTO) 7 % (22-44); MD NO; MEAN CORPUSCULAR HEMOGLOBIN 30.1 pg (27.0-34.8); MEAN CORPUSCULAR HGB CONC 32.1 g/dL (32.4-35.8); MEAN CORPUSCULAR VOLUME 93.7 fL (80-100); MEAN PLATELET VOLUME 8.5 fL (7.4-10.4); MONOCYTES # (AUTO) 0.53 x10^3/uL (0.2-0.8); MONOCYTES % (AUTO) 6 % (2-9); NEUTROPHILS # (AUTO) 7.59 x10^3/uL (1.8-6.8); NEUTROPHILS % (AUTO) 86 % (42-75); PLATELET COUNT 284 x10^3/uL (130-400); RED BLOOD COUNT 4.35 x10^6/uL (3.82-5.3); RED CELL DISTRIBUTION WIDTH 14.9 % (9.6-15.2)
[2019-09-21 06:30] LABS: HCT (SEDRATE) 40.7 % (34.6-47.8)
[2019-09-21 06:32] LABS: ALBUMIN 2.8 g/dL (3.4-5.0); ANION GAP 6 mmol/L (5-15); CALCIUM 9.8 mg/dL (8.5-10.1); CHLORIDE 102 mmol/L (98-107)
[2019-09-21 06:42] LABS: ALANINE AMINOTRANSFERASE 36 U/L (12-78); ALKALINE PHOSPHATASE 61 U/L (45-117); BILIRUBIN,TOTAL 0.7 mg/dL (0.2-1.0); CREATININE 1.14 mg/dL (0.55-1.02); TOTAL PROTEIN 7.5 g/dL (6.4-8.2)
[2019-09-21 06:58] VITALS: BP 139/88
[2019-09-21] MEDS ORDERED: FUROSEMIDE 20 MG/2 ML IV ONE (08:00)
[2019-09-21] MEDS: INSULIN LISPRO 100 UNITS/ML, PEN SQ-INSULIN SCH ×4 (09:03→20:41)
[2019-09-21] MEDS: ASCORBIC ACID 500 MG TABLET PO SCH ×3 (09:04→20:40)
[2019-09-21] MEDS: APIXABAN 5 MG TABLET PO SCH ×2 (09:04→20:40)
[2019-09-21] MEDS: ATORVASTATIN 20 MG TABLET PO SCH ×2 (09:04→20:40)
[2019-09-21] MEDS: ALLOPURINOL 100 MG TABLET PO SCH (09:04)
[2019-09-21] MEDS: metFORMIN 500 MG TABLET PO SCH ×2 (09:04→16:50)
[2019-09-21] MEDS: SENNA/DOCUSATE TABLET PO SCH (09:04)
[2019-09-21] MEDS: CHOLECALCIFEROL 5,000u TAB PO SCH (09:05)
[2019-09-21] MEDS: ZINC SULFATE 220 MG CAPSULE PO SCH (09:05)
[2019-09-21] MEDS: OMEPRAZOLE 20 MG CAPSULE.DR PO SCH (09:05)
[2019-09-21 13:30] VITALS: BP 127/76
[2019-09-21] MEDS ORDERED: INSULIN LISPRO 100 UNITS/ML, PEN SQ-INSULIN SCH (16:00)
[2019-09-21] MEDS: REMDESIVIR 100 MG in SODIUM CHLORIDE 0.9% 250 ML IVPB SCH (16:51)
[2019-09-21 20:14] VITALS: BP 139/89
[2019-09-22 00:35] VITALS: BP 131/80
[2019-09-22 05:07] LABS: ALANINE AMINOTRANSFERASE 37 U/L (12-78); ALBUMIN 2.8 g/dL (3.4-5.0); ANION GAP 8 mmol/L (5-15); C-REACTIVE PROTEIN, QUANT 0.77 mg/dL (0.02-0.49); CALCIUM 9.3 mg/dL (8.5-10.1); CHLORIDE 102 mmol/L (98-107); CREATININE 0.96 mg/dL (0.55-1.02)
[2019-09-22 05:12] LABS: ALKALINE PHOSPHATASE 54 U/L (45-117); BILIRUBIN,TOTAL 0.6 mg/dL (0.2-1.0); TOTAL PROTEIN 7.2 g/dL (6.4-8.2)
[2019-09-22 05:38] LABS: MD NO
[2019-09-22 06:01] LABS: BASOPHILS # (AUTO) 0.01 x10^3/uL (0-0.1); BASOPHILS % (AUTO) 0 % (0-1); EOSINOPHILS # (AUTO) 0.01 x10^3/uL (0-0.4); EOSINOPHILS % (AUTO) 0 % (1-7); HCT (SEDRATE) 41.2 % (34.6-47.8); LYMPHOCYTES # (AUTO) 1.45 x10^3/uL (1-3.4); LYMPHOCYTES % (AUTO) 13 % (22-44); MEAN CORPUSCULAR HEMOGLOBIN 29.9 pg (27.0-34.8); MEAN CORPUSCULAR VOLUME 93.6 fL (80-100); MEAN PLATELET VOLUME 8.6 fL (7.4-10.4); MONOCYTES # (AUTO) 0.73 x10^3/uL (0.2-0.8); MONOCYTES % (AUTO) 6 % (2-9); NEUTROPHILS # (AUTO) 9.15 x10^3/uL (1.8-6.8); NEUTROPHILS % (AUTO) 81 % (42-75); PLATELET COUNT 288 x10^3/uL (130-400); RED CELL DISTRIBUTION WIDTH 14.8 % (9.6-15.2)
[2019-09-22] MEDS: INSULIN LISPRO 100 UNITS/ML, PEN SQ-INSULIN SCH ×4 (07:00→21:27)
[2019-09-22 07:11] VITALS: BP 120/81
[2019-09-22] MEDS: ASCORBIC ACID 500 MG TABLET PO SCH ×3 (09:00→21:27)
[2019-09-22] MEDS: SENNA/DOCUSATE TABLET PO SCH (09:00)
[2019-09-22] MEDS ORDERED: methylPREDNISolone SOD SUCC 40 MG/ML IV SCH (09:00)
[2019-09-22] MEDS ORDERED: ASCORBIC ACID 250 MG TAB ONE (09:04)
[2019-09-22] MEDS: ZINC SULFATE 220 MG CAPSULE PO SCH (09:14)
[2019-09-22] MEDS: APIXABAN 5 MG TABLET PO SCH ×2 (09:14→21:27)
[2019-09-22] MEDS: POTASSIUM CHLORIDE 20 MEQ TAB.ER.PRT PO SCH ×2 (09:14→18:47)
[2019-09-22] MEDS: OMEPRAZOLE 20 MG CAPSULE.DR PO SCH (09:14)
[2019-09-22] MEDS: ATORVASTATIN 20 MG TABLET PO SCH ×2 (09:15→21:27)
[2019-09-22] MEDS: ALLOPURINOL 100 MG TABLET PO SCH (09:15)
[2019-09-22] MEDS: CHOLECALCIFEROL 5,000u TAB PO SCH (09:16)
[2019-09-22] MEDS: metFORMIN 500 MG TABLET PO SCH ×2 (09:41→18:48)
[2019-09-22 13:18] VITALS: BP 115/80
[2019-09-22 19:12] VITALS: BP 127/85
[2019-09-22] MEDS: ACETAMINOPHEN 325 MG TABLET PO PRN (23:21)
[2019-09-23 03:45] VITALS: BP 146/90
[2019-09-23 05:35] LABS: BASOPHILS % (AUTO) 0 % (0-1); EOSINOPHILS # (AUTO) 0.09 x10^3/uL (0-0.4); EOSINOPHILS % (AUTO) 1 % (1-7); LYMPHOCYTES # (AUTO) 1.04 x10^3/uL (1-3.4); LYMPHOCYTES % (AUTO) 10 % (22-44); MD NO; MEAN CORPUSCULAR HGB CONC 32.5 g/dL (32.4-35.8); MEAN CORPUSCULAR VOLUME 92.2 fL (80-100); MEAN PLATELET VOLUME 8.4 fL (7.4-10.4); MONOCYTES # (AUTO) 0.47 x10^3/uL (0.2-0.8); MONOCYTES % (AUTO) 5 % (2-9); NEUTROPHILS # (AUTO) 8.47 x10^3/uL (1.8-6.8); NEUTROPHILS % (AUTO) 84 % (42-75); PLATELET COUNT 276 x10^3/uL (130-400); RED BLOOD COUNT 4.38 x10^6/uL (3.82-5.3); RED CELL DISTRIBUTION WIDTH 14.3 % (9.6-15.2)
[2019-09-23 05:39] LABS: CHLORIDE 103 mmol/L (98-107)
[2019-09-23 06:07] LABS: HCT (SEDRATE) 40.4 % (34.6-47.8)
[2019-09-23 06:29] LABS: ALANINE AMINOTRANSFERASE 41 U/L (12-78); ALBUMIN 2.8 g/dL (3.4-5.0); ALKALINE PHOSPHATASE 55 U/L (45-117); ANION GAP 10 mmol/L (5-15); BILIRUBIN,TOTAL 0.7 mg/dL (0.2-1.0); CALCIUM 9.4 mg/dL (8.5-10.1); CREATININE 0.88 mg/dL (0.55-1.02); TOTAL PROTEIN 7.3 g/dL (6.4-8.2)
[2019-09-23 06:57] VITALS: BP 131/84
[2019-09-23] MEDS: INSULIN LISPRO 100 UNITS/ML, PEN SQ-INSULIN SCH ×4 (09:00→20:33)
[2019-09-23] MEDS: SENNA/DOCUSATE TABLET PO SCH (09:00)
[2019-09-23] MEDS: OMEPRAZOLE 20 MG CAPSULE.DR PO SCH (09:00)
[2019-09-23] MEDS: ATORVASTATIN 20 MG TABLET PO SCH ×2 (09:01→20:32)
[2019-09-23] MEDS: ASCORBIC ACID 500 MG TABLET PO SCH ×3 (09:01→20:32)
[2019-09-23] MEDS: APIXABAN 5 MG TABLET PO SCH ×2 (09:01→20:32)
[2019-09-23] MEDS: CHOLECALCIFEROL 5,000u TAB PO SCH (09:01)
[2019-09-23] MEDS: ALLOPURINOL 100 MG TABLET PO SCH (09:01)
[2019-09-23] MEDS: ZINC SULFATE 220 MG CAPSULE PO SCH (09:01)
[2019-09-23] MEDS: metFORMIN 500 MG TABLET PO SCH ×2 (09:01→16:38)
[2019-09-23 12:10] VITALS: BP 114/77
[2019-09-23 18:57] VITALS: BP 120/83
[2019-09-24 00:44] VITALS: BP 135/87
[2019-09-24 05:11] LABS: BASOPHILS # (AUTO) 0.02 x10^3/uL (0-0.1); BASOPHILS % (AUTO) 0 % (0-1); EOSINOPHILS # (AUTO) 0.14 x10^3/uL (0-0.4); EOSINOPHILS % (AUTO) 2 % (1-7); LYMPHOCYTES # (AUTO) 1.15 x10^3/uL (1-3.4); LYMPHOCYTES % (AUTO) 13 % (22-44); MD NO; MEAN CORPUSCULAR HEMOGLOBIN 30.1 pg (27.0-34.8); MEAN CORPUSCULAR HGB CONC 32.3 g/dL (32.4-35.8); MEAN CORPUSCULAR VOLUME 93.3 fL (80-100); MEAN PLATELET VOLUME 8.3 fL (7.4-10.4); MONOCYTES # (AUTO) 0.61 x10^3/uL (0.2-0.8); MONOCYTES % (AUTO) 7 % (2-9); NEUTROPHILS # (AUTO) 7.19 x10^3/uL (1.8-6.8); NEUTROPHILS % (AUTO) 79 % (42-75); PLATELET COUNT 276 x10^3/uL (130-400); RED CELL DISTRIBUTION WIDTH 14.7 % (9.6-15.2)
[2019-09-24 05:23] LABS: CHLORIDE 103 mmol/L (98-107)
[2019-09-24 05:41] LABS: ALANINE AMINOTRANSFERASE 36 U/L (12-78); ALBUMIN 2.8 g/dL (3.4-5.0); ALKALINE PHOSPHATASE 50 U/L (45-117); ANION GAP 7 mmol/L (5-15); BILIRUBIN,TOTAL 0.8 mg/dL (0.2-1.0); CALCIUM 9.2 mg/dL (8.5-10.1); CREATININE 0.82 mg/dL (0.55-1.02); TOTAL PROTEIN 7.1 g/dL (6.4-8.2)
[2019-09-24 05:51] LABS: HCT (SEDRATE) 41.1 % (34.6-47.8)
[2019-09-24] MEDS: INSULIN LISPRO 100 UNITS/ML, PEN SQ-INSULIN SCH ×4 (07:00→21:00)
[2019-09-24 08:03] VITALS: BP 141/92
[2019-09-24] MEDS: metFORMIN 500 MG TABLET PO SCH ×2 (08:11→16:46)
[2019-09-24] MEDS: ASCORBIC ACID 500 MG TABLET PO SCH ×3 (08:11→21:32)
[2019-09-24] MEDS: SENNA/DOCUSATE TABLET PO SCH (08:11)
[2019-09-24] MEDS: CHOLECALCIFEROL 5,000u TAB PO SCH (08:11)
[2019-09-24] MEDS: ALLOPURINOL 100 MG TABLET PO SCH (08:11)
[2019-09-24] MEDS: OMEPRAZOLE 20 MG CAPSULE.DR PO SCH (08:11)
[2019-09-24] MEDS: APIXABAN 5 MG TABLET PO SCH ×2 (08:11→21:32)
[2019-09-24] MEDS: ZINC SULFATE 220 MG CAPSULE PO SCH (08:12)
[2019-09-24] MEDS: ATORVASTATIN 20 MG TABLET PO SCH ×2 (08:12→21:32)
[2019-09-24] MEDS: LISINOPRIL 10 MG TABLET PO SCH (08:32)
[2019-09-24 15:20] VITALS: BP 136/73
[2019-09-24 15:29] VITALS: BP 102/69
[2019-09-24] MEDS: AMLODIPINE 10 MG TAB PO SCH (16:46)
[2019-09-24 19:12] VITALS: BP 128/83
[2019-09-25 01:27] VITALS: BP 119/81
[2019-09-25 05:18] LABS: BASOPHILS % (AUTO) 0 % (0-1); EOSINOPHILS # (AUTO) 0.11 x10^3/uL (0-0.4); EOSINOPHILS % (AUTO) 1 % (1-7); LYMPHOCYTES % (AUTO) 12 % (22-44); MD NO; MEAN CORPUSCULAR HEMOGLOBIN 29.9 pg (27.0-34.8); MEAN CORPUSCULAR HGB CONC 31.7 g/dL (32.4-35.8); MEAN CORPUSCULAR VOLUME 94.3 fL (80-100); MEAN PLATELET VOLUME 8.3 fL (7.4-10.4); MONOCYTES # (AUTO) 0.61 x10^3/uL (0.2-0.8); MONOCYTES % (AUTO) 6 % (2-9); NEUTROPHILS # (AUTO) 8.45 x10^3/uL (1.8-6.8); NEUTROPHILS % (AUTO) 81 % (42-75); PLATELET COUNT 324 x10^3/uL (130-400); RED BLOOD COUNT 4.38 x10^6/uL (3.82-5.3); RED CELL DISTRIBUTION WIDTH 14.8 % (9.6-15.2)
[2019-09-25 05:32] LABS: CHLORIDE 104 mmol/L (98-107)
[2019-09-25 05:42] LABS: ALANINE AMINOTRANSFERASE 38 U/L (12-78); ALKALINE PHOSPHATASE 54 U/L (45-117); ANION GAP 8 mmol/L (5-15); BILIRUBIN,TOTAL 0.8 mg/dL (0.2-1.0); C-REACTIVE PROTEIN, QUANT 0.88 mg/dL (0.02-0.49); CALCIUM 9.5 mg/dL (8.5-10.1); CREATININE 0.89 mg/dL (0.55-1.02); TOTAL PROTEIN 7.2 g/dL (6.4-8.2)
[2019-09-25 06:26] LABS: HCT (SEDRATE) 41.3 % (34.6-47.8)
[2019-09-25 08:40] VITALS: BP 113/75
[2019-09-25] MEDS: INSULIN LISPRO 100 UNITS/ML, PEN SQ-INSULIN SCH ×4 (08:45→20:21)
[2019-09-25] MEDS: LISINOPRIL 10 MG TABLET PO SCH (08:48)
[2019-09-25] MEDS: ATORVASTATIN 20 MG TABLET PO SCH ×2 (08:49→20:20)
[2019-09-25] MEDS: OMEPRAZOLE 20 MG CAPSULE.DR PO SCH (08:49)
[2019-09-25] MEDS: ZINC SULFATE 220 MG CAPSULE PO SCH (08:49)
[2019-09-25] MEDS: ASCORBIC ACID 500 MG TABLET PO SCH ×3 (08:49→20:20)
[2019-09-25] MEDS: APIXABAN 5 MG TABLET PO SCH ×2 (08:50→20:20)
[2019-09-25] MEDS: CHOLECALCIFEROL 5,000u TAB PO SCH (08:50)
[2019-09-25] MEDS: ALLOPURINOL 100 MG TABLET PO SCH (08:50)
[2019-09-25] MEDS: metFORMIN 500 MG TABLET PO SCH ×2 (08:50→16:57)
[2019-09-25] MEDS: SENNA/DOCUSATE TABLET PO SCH (08:51)
[2019-09-25] MEDS: AMLODIPINE 10 MG TAB PO SCH (08:51)
[2019-09-25] MEDS ORDERED: BUDESONIDE 0.5 MG/2 ML INHA INH SCH (11:00)
[2019-09-25 12:00] VITALS: BP 106/69
[2019-09-25] MEDS: FLUTICASONE FUROATE 100MCG/INH INH SCH (17:53)
[2019-09-25 18:40] VITALS: BP 116/80
[2019-09-26 00:21] VITALS: BP 116/80
[2019-09-26 06:33] VITALS: BP 125/80
[2019-09-26] MEDS: INSULIN LISPRO 100 UNITS/ML, PEN SQ-INSULIN SCH ×3 (07:00→12:17)
[2019-09-26] MEDS: metFORMIN 500 MG TABLET PO SCH (07:46)
[2019-09-26] MEDS: FLUTICASONE FUROATE 100MCG/INH INH SCH (07:47)
[2019-09-26] MEDS: SENNA/DOCUSATE TABLET PO SCH (07:48)
[2019-09-26] MEDS: AMLODIPINE 10 MG TAB PO SCH (07:48)
[2019-09-26] MEDS: ATORVASTATIN 20 MG TABLET PO SCH (07:48)
[2019-09-26] MEDS: OMEPRAZOLE 20 MG CAPSULE.DR PO SCH (07:48)
[2019-09-26] MEDS: LISINOPRIL 10 MG TABLET PO SCH (07:48)
[2019-09-26] MEDS: APIXABAN 5 MG TABLET PO SCH (07:48)
[2019-09-26] MEDS: ASCORBIC ACID 500 MG TABLET PO SCH (07:49)
[2019-09-26] MEDS: CHOLECALCIFEROL 5,000u TAB PO SCH (07:49)
[2019-09-26] MEDS: ZINC SULFATE 220 MG CAPSULE PO SCH (07:49)
[2019-09-26] MEDS: ALLOPURINOL 100 MG TABLET PO SCH (07:49)
[2019-09-26] MEDS ORDERED: CHOL500045 PO (10:15)
[2019-09-26] MEDS ORDERED: ASCO500T9 PO (10:15)
[2019-09-26] MEDS ORDERED: ZINC220C7 PO (10:15)
== END 2019-09-26 12:35 | disposition home or self-care (01) | DRG 871 ==
LOC: ED 17:01 → EDIP 17:30 → 4NW 23:14
PROVIDERS: ADMIT Hospitalist; ATTEND Family Medicine
DX: A41.89 Other specified sepsis (principal); J96.01 Acute respiratory failure with hypoxia; J12.89 Other viral pneumonia; J15.9 Unspecified bacterial pneumonia; N17.9 Acute kidney failure, unspecified; Z68.43 Body mass index [BMI] 50.0-59.9, adult; D72.810 Lymphocytopenia; E66.01 Morbid (severe) obesity due to excess calories; E78.5 Hyperlipidemia, unspecified; G47.33 Obstructive sleep apnea (adult) (pediatric); I15.1 Hypertension secondary to other renal disorders; E11.65 Type 2 diabetes mellitus with hyperglycemia; L40.9 Psoriasis, unspecified; Z78.9 Other specified health status; Z79.01 Long term (current) use of anticoagulants; Z80.8 Family history of malignant neoplasm of other organs or systems; Z82.49 Family history of ischemic heart disease and other diseases of the circulatory system; Z83.3 Family history of diabetes mellitus; Z86.711 Personal history of pulmonary embolism; Z86.718 Personal history of other venous thrombosis and embolism; Z87.891 Personal history of nicotine dependence; Z90.710 Acquired absence of both cervix and uterus; Z20.828 Contact with and (suspected) exposure to other viral communicable diseases
CPT/HCPCS: 36415; 36600; 71045; 80048; 80053; 81001; 82565; 82728; 82803; 82962; 83036; 83605; 83615; 84145; 85025; 85049; 85379; 85384; 85610; 85651; 85730; 86140; 87040; 87070; 87205; 87635; 93005; 93308; 93321; 93325; 96361; 96374; 96375; 99285; G0378; J0456; J0696; J2405; J2543; J3370; Q0162; J1815; J1940; J2920; J7030; J7040; J7050; J7512

== ENCOUNTER 2019-10-02 20:06 | Emergency (ER) | payer OTHER ==
[~2019-10-02] VITALS: Ht 167.6 cm; Wt 161.0 kg
[~2019-10-02 20:06] MED LIST changes: +ALLO100T30 PO; +APIX5TAB PO; +ASCO500T9 PO; +ATOR20TA37 PO; +CHOL500045 PO; +OMEP40CA42 PO; +ZINC220C7 PO
--- NOTE | 2019-10-02 20:17 | NUR ---
EKG DONE ON ARRIVAL BY THIS TECH.
--- NOTE | 2019-10-02 20:24 | NUR ---
THIS IS A 49Y F BIB EMS FROM HOME. PT WAS COVID POS 09/13. D/C 09/23 PT STS SHE HAS INC SOB WITH ACTIVITY AND A RASH THAT BENADRYL DOES NOT HELP WITH. RA SAT 92% PER EMS, DENIES FEVER CHILLS COUGH. PT CONNECTED TO ALL MONITORING VSSNADN. MCCONNELL AT BEDSIDE FOR ASSESSMENT AT THIS TIME
[2019-10-02] MEDS ORDERED: FAMOTIDINE 20 MG TABLET PO ONE (20:30)
[2019-10-02] MEDS ORDERED: SODIUM CHLORIDE FLUSH 10ML SYR IVF ONE (20:30)
[2019-10-02] MEDS ORDERED: DIPHENHYDRAMINE 25 MG CAPSULE PO ONE (20:30)
[2019-10-02] MEDS ORDERED: SODIUM CHLORIDE 0.9% 1,000ML IVBOLUS ONE (20:30)
[2019-10-02] MEDS ORDERED: FAMOTIDINE 20 MG TABLET ONE (20:38)
[2019-10-02] MEDS ORDERED: DIPHENHYDRAMINE 25 MG CAPSULE ONE (20:38)
--- NOTE | 2019-10-02 20:41 | NUR ---
PT MEDICATED PER May, RIGHTS VERIFIED, NORMA. LAB AT BEDSIDE FOR DRAW AT THIS TIME
[2019-10-02 21:09] LABS: BASOPHILS # (AUTO) 0.02 x10^3/uL (0-0.1); BASOPHILS % (AUTO) 0 % (0-1); EOSINOPHILS # (AUTO) 0.07 x10^3/uL (0-0.4); EOSINOPHILS % (AUTO) 1 % (1-7); LYMPHOCYTES # (AUTO) 0.77 x10^3/uL (1-3.4); LYMPHOCYTES % (AUTO) 10 % (22-44); MD NO; MEAN CORPUSCULAR HEMOGLOBIN 30.4 pg (27.0-34.8); MEAN CORPUSCULAR HGB CONC 32.3 g/dL (32.4-35.8); MEAN PLATELET VOLUME 8.8 fL (7.4-10.4); MONOCYTES # (AUTO) 0.59 x10^3/uL (0.2-0.8); MONOCYTES % (AUTO) 8 % (2-9); NEUTROPHILS # (AUTO) 6.41 x10^3/uL (1.8-6.8); NEUTROPHILS % (AUTO) 82 % (42-75); PLATELET COUNT 201 x10^3/uL (130-400); RED BLOOD COUNT 4.02 x10^6/uL (3.82-5.3); RED CELL DISTRIBUTION WIDTH 15.9 % (9.6-15.2)
[2019-10-02 21:18] LABS: ALBUMIN 2.7 g/dL (3.4-5.0); ANION GAP 9 mmol/L (5-15); CALCIUM 8.7 mg/dL (8.5-10.1); CHLORIDE 105 mmol/L (98-107)
[2019-10-02 21:22] LABS: ALANINE AMINOTRANSFERASE 33 U/L (12-78); ALKALINE PHOSPHATASE 54 U/L (45-117); BILIRUBIN,TOTAL 0.8 mg/dL (0.2-1.0); CREATININE 0.82 mg/dL (0.55-1.02); TOTAL PROTEIN 6.8 g/dL (6.4-8.2)
--- NOTE | 2019-10-02 21:24 | NUR ---
PT RESTING ON GURNEY EYES CLOSED NO NEEDS AT THIS TIME.
--- NOTE | 2019-10-02 22:00 | NUR ---
PT TO CT AT THIS TIME
--- NOTE | 2019-10-02 22:10 | NUR ---
PT BACK FROM CT, TOLERATED WELL NADN.
[2019-10-02] MEDS ORDERED: OMNIPAQUE 350 MG/ML, 75ML BOTTLE ONE (22:18)
[2019-10-02 22:22] LABS: TROPONIN I < 0.015 ng/mL (0.000-0.045)
[2019-10-02 23:18] VITALS: BP 120/63
--- NOTE | 2019-10-02 23:19 | NUR ---
Patient/Caregiver given discharge instructions and they have confirmed that they understand the instructions. Patient wheeled to dc at pt request
== END 2019-10-02 23:25 | disposition home or self-care (01) ==
LOC: ED 20:53
DX: J12.9 Viral pneumonia, unspecified (principal); R06.00 Dyspnea, unspecified; R00.0 Tachycardia, unspecified; I10 Essential (primary) hypertension; E78.5 Hyperlipidemia, unspecified; E11.9 Type 2 diabetes mellitus without complications; Z90.710 Acquired absence of both cervix and uterus; Z86.718 Personal history of other venous thrombosis and embolism
CPT/HCPCS: 36415; 71045; 71275; 80053; 83880; 84484; 85025; 93005; 99285; J7030; J7512; Q0163; Q9967

== ENCOUNTER 2020-02-17 15:19 | Emergency (ER) | payer OTHER ==
[~2020-02-17] VITALS: Ht 167.6 cm; Wt 156.0 kg
[~2020-02-17 15:19] MED LIST changes: +AMLO-211 PO; -AMLO10TA8 PO
[2020-02-17] MEDS ORDERED: NEOSPORIN OINT. PKT 1 PACKET ONE (15:58)
[2020-02-17] MEDS ORDERED: OXYMETAZOLINE NASAL SPRAY 0.05%, 15ML NAS ONE (16:00)
[2020-02-17] MEDS ORDERED: LIDOCAINE 1%, 10ML INFIL ONE (16:00)
--- NOTE | 2020-02-17 16:01 | NUR ---
NOSE BLEED CONTINUES. MADE AWARE
[2020-02-17 16:25] VITALS: BP 158/97
== END 2020-02-17 16:45 | disposition home or self-care (01) ==
LOC: ED 16:30
DX: R04.0 Epistaxis (principal); I10 Essential (primary) hypertension; E11.9 Type 2 diabetes mellitus without complications; Z87.891 Personal history of nicotine dependence
CPT/HCPCS: 30901; 99284; J3490

== ENCOUNTER 2020-02-21 10:13 | Emergency (ER) | payer OTHER ==
[~2020-02-21] VITALS: Ht 167.6 cm; Wt 152.2 kg
[2020-02-21 10:17] VITALS: BP 140/84
[2020-02-21] MEDS ORDERED: OXYMETAZOLINE NASAL SPRAY 0.05%,30ML ONE (10:54)
--- NOTE | 2020-02-21 10:57 | NUR ---
PACKING REMOVED BY PROVIDER. PROVIDER UTILIZED AFRIN SPRAY.
--- NOTE | 2020-02-21 10:57 | NUR ---
PT AT ED FOR REMOVAL OF NASAL PACKING. PT HAD A BLOODY NOSE JING AND WAS BROUGHT IN BY EMS. PT HAD PACKING PLACED IN LEFT NOSTRIL.
[2020-02-21] MEDS ORDERED: OXYMETAZOLINE NASAL SPRAY 0.05%, 15ML NAS ONE (11:00)
--- NOTE | 2020-02-21 11:52 | NUR ---
PT REC'VD DISCHARGE INSTRUCTIONS AND EDUCATION. PT HAD NO FURTHER QUESTIONS. PT AMBULATED TO DISCHARGE AREA, STEADY GAIT.
== END 2020-02-21 11:53 | disposition home or self-care (01) ==
LOC: ED 10:44
DX: R04.0 Epistaxis (principal); E11.9 Type 2 diabetes mellitus without complications; E78.5 Hyperlipidemia, unspecified; Z90.710 Acquired absence of both cervix and uterus; Z86.718 Personal history of other venous thrombosis and embolism
CPT/HCPCS: 99281; 99282